=== PATIENT | male | born 1965 | race Caucasian/White ===

== ENCOUNTER 2018-04-22 18:44 | Emergency (ER) | payer BC ==
[~2018-04-22] VITALS: Ht 175.3 cm; Wt 74.8 kg
[2018-04-22 19:06] VITALS: BP 134/81
== END 2018-04-22 19:18 | disposition home or self-care (01) ==
LOC: ER 18:46
DX: S50.02XA Contusion of left elbow, initial encounter (principal); W17.89XA Other fall from one level to another, initial encounter; Y93.23 Activity, snow (alpine) (downhill) skiing, snowboarding, sledding, tobogganing and snow tubing; Y92.89 Other specified places as the place of occurrence of the external cause; Y99.8 Other external cause status
CPT/HCPCS: 73080-TC